=== PATIENT | male | born 1965 | race Caucasian/White ===

== ENCOUNTER 2023-04-22 15:20 | Emergency (ER) | payer SELFPAY ==
[~2023-04-22] VITALS: Ht 170.2 cm; Wt 91.0 kg
[2023-04-22] MEDS ORDERED: KETOROLAC 30MG/ML VIAL IM ONE (16:15)
[2023-04-22] MEDS ORDERED: METHOCARBAMOL 500MG TABLET PO ONE (16:15)
[2023-04-22] MEDS ORDERED: ACETAMINOPHEN 325MG TABLET PO ONE (16:15)
[2023-04-22] MEDS ORDERED: IBUP-2029 MT (16:38)
[2023-04-22 18:43] VITALS: BP 146/76
== END 2023-04-22 18:45 | disposition home or self-care (01) ==
LOC: ER 15:20
DX: M79.10 Myalgia, unspecified site (principal); R51.9 Headache, unspecified; E11.9 Type 2 diabetes mellitus without complications; Z98.890 Other specified postprocedural states
CPT/HCPCS: 70450; 72125; 96372; 99285; J1885; Z7610